=== PATIENT | female | born 1960 | race African-American/Black ===

== ENCOUNTER 2017-01-11 10:44 | Emergency (ER) | payer MEDICAID ==
[~2017-01-11] VITALS: Ht 162.6 cm; Wt 57.0 kg
[2017-01-11 10:46] VITALS: BP 134/99
== END 2017-01-11 12:53 | disposition home or self-care (01) ==
LOC: ER 11:13
DX: L03.116 Cellulitis of left lower limb (principal); L03.313 Cellulitis of chest wall; L29.9 Pruritus, unspecified; K21.9 Gastro-esophageal reflux disease without esophagitis; Z98.890 Other specified postprocedural states
CPT/HCPCS: 99283

== ENCOUNTER 2022-05-05 14:19 | Emergency (ER) | payer MEDICAID ==
[~2022-05-05] VITALS: Ht 170.2 cm; Wt 79.0 kg
[2022-05-05 15:45] VITALS: BP 164/84
[2022-05-05] MEDS ORDERED: KETOROLAC 30MG/ML VIAL IM ONE (15:45)
[2022-05-05] MEDS ORDERED: MELO-104 MT (15:56)
[2022-05-05] MEDS ORDERED: CYCL10TA21 MT (15:56)
== END 2022-05-05 17:20 | disposition home or self-care (01) ==
LOC: ER 14:19
DX: M79.2 Neuralgia and neuritis, unspecified (principal); K21.9 Gastro-esophageal reflux disease without esophagitis
CPT/HCPCS: 96372; 99283; J1885; Z7610